=== PATIENT | female | born 1960 | race Caucasian/White ===

== ENCOUNTER → 2020-06-10 | Outpatient (CLI) | payer OTHER ==
[~2020-06-10] MED LIST: ASPIRIN E.C. 8181 MG PO; CRESTOR 10MG10 MG PO; INDERAL PO; MULTIPLE VITAMI1 CAP PO
== END ==
LOC: MC.RAD 05-25 13:00
DX: Z12.31 Encounter for screening mammogram for malignant neoplasm of breast (principal); R92.8 Other abnormal and inconclusive findings on diagnostic imaging of breast; R59.0 Localized enlarged lymph nodes

== ENCOUNTER → 2020-06-17 | Outpatient (CLI) | payer OTHER | LOC: MC.RAD 08:57 | DX: R59.0 Localized enlarged lymph nodes (principal) ==

== ENCOUNTER → 2020-08-06 | Outpatient (CLI) | payer OTHER ==
[~2020-08-06] MED LIST changes: +COMPAZINE 110 MG/TAB PO; +COZAAR100 MG PO; +NORCO 325 MG-51 TAB PO; +NORVASC 10MG10 MG PO; +ONE-A-DAY ESSE1 EACH PO
== END ==
LOC: COL.RAD 07:33
DX: C50.512 Malignant neoplasm of lower-outer quadrant of left female breast (principal); C79.51 Secondary malignant neoplasm of bone; M47.812 Spondylosis without myelopathy or radiculopathy, cervical region; M48.02 Spinal stenosis, cervical region
CPT/HCPCS: A9585

== ENCOUNTER 2020-08-10 11:38 | Day surgery (SDC) | payer OTHER ==
[~2020-08-10] VITALS: Ht 172.7 cm; Wt 94.0 kg
[~2020-08-10 11:38] MED LIST changes: -COMPAZINE 110 MG/TAB PO; -COZAAR100 MG PO; -NORCO 325 MG-51 TAB PO; -NORVASC 10MG10 MG PO; -ONE-A-DAY ESSE1 EACH PO
[2020-08-10 12:19] VITALS: BP 174/68; PULSE 70; TEMP 97.9
[2020-08-10] MEDS ORDERED: COZAAR100 MG PO (12:25)
[2020-08-10] MEDS ORDERED: ONE-A-DAY ESSE1 EACH PO (12:26)
--- NOTE | 2020-08-10 12:28 | NUR ---
TO RM AT 1150- CALL LIGHT IN REACH AT BEDSIDE.
--- NOTE | 2020-08-10 13:20 | NUR ---
PATIENTS HEART RATE WOULD DROP TO 38- S. DENNY [employer] INVESTIGATOR INFORMED.
[2020-08-10] MEDS ORDERED: NORCO 325 MG-51 TAB PO (14:53)
[2020-08-10 15:17] VITALS: BP 122/88; PULSE 79; TEMP 97.6
[2020-08-10 15:20] VITALS: BP 183/83; PULSE 88
[2020-08-10 15:35] VITALS: BP 169/88; PULSE 37
--- NOTE | 2020-08-10 16:46 | NUR ---
PT RETURNED FROM OR INTO BAY#5. PT ALERT AND SLEEPY. PT COUGHING AND C/O HEADACHE. LUNGS CLEAR, HR IRREGULAR. 12 LEAD EKG ORDERED PER NURSE ANESTHESIA. MED ALSO GIVEN PER ZAKIYA, ANESTHESIA AND DOCUMENTED. MED GIVEN FOR COUGH AND SECRETIONS. PT REQUESTED ICE CHIPS, AND TOLERATING WELL. PT ADVANCED PO INTAKE TO WATER AND APPLESAUCE. PT DENIES NAUSEA OR PAIN AT THIS TIME. PT STATES, 'I CAN JUST FEEL WHERE THE PORT IS, ITS NOT PAINFUL AT THIS TIME.' AT BEDSIDE, SIDERAILS UP. WARM BLANKETS GIVEN FOR COMFORT PT WAS SHAKING, 'RELATED TO BEING COLD' PER PT. O2 WAS AT 4L PER NC AND SATS ARE MAINTAINED AT 96%. WILL CONT TO MONITOR.
--- NOTE | 2020-08-10 16:56 | NUR ---
PT ALERT AND ORIENTATED. AT BEDSIDE. IV DC'D PT DENIES NAUSEA AND VOMITING. PT VSS, HR REMAINS IN SINUS WITH SOME IRREGULARITY PER EKG. COPY WAS FAXED TO [facility]. [place] DRESSING DRY AND INTACT. PT AMBULATED TO BATHROOM X1 ASSIST AND VOIDED WITHOUT DIFFICULTY. PT SIGNED DISMISSAL INSTRUCTIONS, DENIES QUESTIONS. PT WAS TAKEN TO PT ENTRANCE PER WC. DRIVING.
== END 2020-08-10 17:05 | disposition home or self-care (01) ==
LOC: SDCO 11:38
DX: C50.512 Malignant neoplasm of lower-outer quadrant of left female breast (principal); C50.911 Malignant neoplasm of unspecified site of right female breast; C77.3 Secondary and unspecified malignant neoplasm of axilla and upper limb lymph nodes; C79.51 Secondary malignant neoplasm of bone; I10 Essential (primary) hypertension; Z79.82 Long term (current) use of aspirin; E78.5 Hyperlipidemia, unspecified; G89.29 Other chronic pain; G89.3 Neoplasm related pain (acute) (chronic); Z86.16 Personal history of COVID-19; Z79.899 Other long term (current) drug therapy
CPT/HCPCS: C1788; J1644; J2250; J2405; J2704; J2795; J7120

== ENCOUNTER 2020-09-30 15:16 | Outpatient (RCR) | payer OTHER ==
[~2020-09-30] VITALS: Ht 172.7 cm; Wt 90.6 kg
[~2020-09-30 15:16] MED LIST changes: +COZAAR100 MG PO; +NORCO 325 MG-51 TAB PO; +ONE-A-DAY ESSE1 EACH PO
[2020-10-01] VITALS (9 sets, daily range): BP systolic 139–166; BP diastolic 70–95; PULSE 68–84; TEMP 79–98.1
[2020-10-01] MEDS ORDERED: NORVASC 10MG10 MG PO (16:26)
[2020-10-01] MEDS ORDERED: COMPAZINE 110 MG/TAB PO (16:27)
== END 2020-10-01 20:03 | disposition home or self-care (01) ==
LOC: EUO 15:16
DX: C50.412 Malignant neoplasm of upper-outer quadrant of left female breast (principal); C50.811 Malignant neoplasm of overlapping sites of right female breast; C77.0 Secondary and unspecified malignant neoplasm of lymph nodes of head, face and neck; C77.3 Secondary and unspecified malignant neoplasm of axilla and upper limb lymph nodes; C79.51 Secondary malignant neoplasm of bone; C79.72 Secondary malignant neoplasm of left adrenal gland; D64.81 Anemia due to antineoplastic chemotherapy
CPT/HCPCS: J1644; J7050; P9040

== ENCOUNTER → 2020-12-07 | Outpatient (CLI) | payer OTHER ==
[~2020-12-07] MED LIST changes: +COMPAZINE 110 MG/TAB PO; +NORVASC 10MG10 MG PO
== END ==
LOC: COL.VAS 13:05
DX: Z51.11 Encounter for antineoplastic chemotherapy (principal); I34.0 Nonrheumatic mitral (valve) insufficiency; I51.7 Cardiomegaly; C50.412 Malignant neoplasm of upper-outer quadrant of left female breast

== ENCOUNTER → 2021-03-22 | Outpatient (CLI) | payer OTHER | LOC: COL.VAS 12:08 | DX: C50.412 Malignant neoplasm of upper-outer quadrant of left female breast (principal) ==

== ENCOUNTER → 2021-05-12 | Outpatient (CLI) | payer OTHER ==
[~2021-05-12] VITALS: Ht 172.7 cm; Wt 90.5 kg
[2021-05-12] VITALS (11 sets, daily range): BP systolic 130–149; BP diastolic 84–95; PULSE 56–68; TEMP 98
--- NOTE | 2021-05-12 13:45 | NUR ---
Pt to ct per ambulation. Pt into scanner and positioned in prone position on table. Monitors applied.
--- NOTE | 2021-05-12 14:00 | NUR ---
After receiving the medication pts respirations deepened and o2 sats decreased O2 at 2l/nc placed on pt.
--- NOTE | 2021-05-12 14:06 | NUR ---
Dr Villanueva obtaines specimens and places in formalin. Specimen labeled.
== END ==
LOC: COL.RAD 12:54
DX: C50.912 Malignant neoplasm of unspecified site of left female breast (principal)
CPT/HCPCS: J2250; J3010

== ENCOUNTER → 2021-08-12 | Outpatient (CLI) | payer OTHER | LOC: COL.VAS 13:58 | DX: C50.412 Malignant neoplasm of upper-outer quadrant of left female breast (principal) ==

== ENCOUNTER → 2021-11-16 | Outpatient (CLI) | payer OTHER | LOC: COL.VAS 11:57 | DX: Z51.11 Encounter for antineoplastic chemotherapy (principal); C50.412 Malignant neoplasm of upper-outer quadrant of left female breast ==

== ENCOUNTER → 2022-01-31 | Outpatient (CLI) | payer OTHER | LOC: COL.VAS 12:59 | DX: C50.811 Malignant neoplasm of overlapping sites of right female breast (principal) ==

== ENCOUNTER → 2022-07-20 | Outpatient (CLI) | payer OTHER | LOC: COL.VAS 13:30 | DX: Z51.11 Encounter for antineoplastic chemotherapy (principal); C50.919 Malignant neoplasm of unspecified site of unspecified female breast; I51.7 Cardiomegaly ==

== ENCOUNTER → 2023-05-31 | Outpatient (CLI) | payer OTHER | LOC: COL.VAS 13:12 | DX: C50.811 Malignant neoplasm of overlapping sites of right female breast (principal) ==

== ENCOUNTER → 2023-09-12 | Outpatient (CLI) | payer MEDICARE, OTHER | LOC: COL.VAS 12:25 | DX: Z51.11 Encounter for antineoplastic chemotherapy (principal); C50.811 Malignant neoplasm of overlapping sites of right female breast ==